=== PATIENT | female | born 1935 | race Caucasian/White ===

== ENCOUNTER 2021-05-20 11:29 | Emergency (ER) | payer MEDICARE, BC ==
[2021-05-20] MEDS ORDERED: Meclizine 12.5 MG Tab PO ONE (12:02)
[2021-05-20] MEDS ORDERED: Dexamethasone 4 MG/ML SDV IVPUSH ONE (12:03)
[2021-05-20] MEDS: Sodium Chloride 0.9% 10 ML Syringe FLUSH PRN ×3 (12:17→12:23)
[2021-05-20 12:37] LABS: ANION GAP 15.9 mEq/L (7-13); CHLORIDE,CL 100 mmol/L (98-107); SODIUM,NA 139 mmol/L (136-145)
--- NOTE | 2021-05-20 12:59 | CT ---
PROCEDURE INFORMATION: Exam: CT Head Without Contrast Exam date and time: 05/20/2021 12:28 PM Age: 85 years old Clinical indication: Dizziness; Additional info: Acute dizziness TECHNIQUE: Imaging protocol: Computed tomography of the head without contrast. Radiation optimization: All CT scans at this facility use at least one of these dose optimization techniques: automated exposure control; mA and/or kV adjustment per patient size (includes targeted exams where dose is matched to clinical indication); or iterative reconstruction. COMPARISON: CT Head wo Cont 03/29/2015 12:13 PM FINDINGS: Brain: Prominent sulci. Patchy hypodensity of the cerebral white matter which are nonspecific but likely secondary to microangiopathic changes. Cerebral ventricles: The ventricles are prominent secondary to diffuse volume loss/atrophy. Paranasal sinuses: Visualized sinuses are unremarkable. No fluid levels. Mastoid air cells: Visualized mastoid air cells are well aerated. Bones/joints: Unremarkable. No acute fracture. Soft tissues: Unremarkable. IMPRESSION: Chronic age related changes but no evidence of acute intracranial pathology.
--- NOTE | 2021-05-20 13:17 | EDM.PDOC ---
Scribed by Peri Honeycutt 05/20/21 1207 for Almas Godwin MD ED HPI GENERAL MEDICAL PROBLEM - General Chief Complaint: General Stated Complaint: DIZZY HIGH BLOOD PRESSURE [id number] Time Seen by Provider: 05/20/21 11:47 Source of Information: Reports: Patient, RN, RN Notes Reviewed History Limitations: Reports: No Limitations - History of Present Illness INITIAL COMMENTS - FREE TEXT/NARRATIVE: Patient presents to ED by POV for dizziness. Pt reports sudden onset of "room spin" dizziness on (05/17/21). The dizzy episode have come and gone several times since the onset. Pt becomes very nauseated with the dizziness, but has not vomited. Pt states she had vertigo in April last year with similar symptoms. The dizziness is worse with head movement and laying supine. Patient takes blood pressure medication at night and states she took her lisinopril and HCTZ last night. Denies headache. Admits to mild sinus congestion and drainage x1 week. Onset: Sudden Duration: Intermittent, Recurring Location: Reports: Generalized Quality: Reports: Other (Denies pain) Severity: Severe Improves with: Reports: Immobilization, Rest Worsens with: Reports: Movement Associated Symptoms: Reports: No Other Symptoms - Related Data Allergies Allergy/AdvReac Type Severity Reaction Status Date / Time meperidine [From Demerol] Allergy Agitation Verified 05/20/21 11:50 Home Meds: Home Meds Levothyroxine 75 mcg PO ACBREAKFAST 05/20/21 [History] hydroCHLOROthiazide [Hydrochlorothiazide] 12.5 mg PO DAILY 05/20/21 [History] lisinopriL [Lisinopril] 20 mg PO DAILY 05/20/21 [History] Past Medical History HEENT History: Reports: Macular Degeneration, Other (See Below) (Vertigo) Cardiovascular History: Reports: Hypertension Endocrine/Metabolic History: Reports: Hypothyroidism Social & Family History - Family History Family Medical History: No Pertinent Family History - Living Situation & Occupation Living situation: Reports: Occupation: Retired ED ROS GENERAL - Review of Systems Review Of Systems: Comprehensive ROS is negative, except as noted in HPI. ED EXAM, DIZZINESS - Physical Exam Exam: See Below Exam Limited By: No Limitations General Appearance: Alert, WD/WN, No Apparent Distress Eye Exam: Bilateral Eye: EOMI, Nystagmus (Lateral gaze), PERRL Nystagmus: reproducible Ears: Normal External Exam, Normal Canal, Hearing Grossly Normal, Normal TMs Nose: Normal Inspection, Normal Mucosa, No Blood Throat/Mouth: Normal Inspection, Normal Lips, Normal Teeth, Normal Gums, Normal Oropharynx, Normal Voice, No Airway Compromise Head Exam: Atraumatic, Normocephalic Neck: Normal Inspection, Supple, Non-Tender, Full Range of Motion. No: Carotid Bruit, Lymphadenopathy (L), Lymphadenopathy (R) Respiratory/Chest: No Respiratory Distress, Lungs Clear, Normal Breath Sounds, No Accessory Muscle Use, Chest Non-Tender Cardiovascular: Regular Rate, Rhythm, No Edema, Extra Beats Neurological: Alert, Normal Mood/Affect, Normal Dorsiflexion, CN II-XII Intact (other than nystagmus as documented above), Normal Plantar Flexion, No M otor/Sensory Deficits, Oriented x 3 Back Exam: Normal Inspection Extremities: Normal Inspection Psychiatric: Normal Affect, Normal Mood Skin Exam: Warm, Dry, Intact, Normal Color, No Rash Course - Vital Signs Last Recorded V/S: Last Vital Signs Temp 97.9 F 05/20/21 11:45 Pulse 92 05/20/21 11:45 Resp 18 05/20/21 11:45 BP 188/107 H 05/20/21 11:45 Pulse Ox 98 05/20/21 11:45 - Orders/Labs/Meds Orders: Active Orders 24 hr Category Date Time Status Peripheral IV Care [RC] . DIRECTED Care 05/20/21 12:02 Active CULTURE URINE [RM] Stat Lab 05/20/21 12:38 Received Sodium Chloride 0.9% [Saline Flush] Med 05/20/21 12:02 Active 10 ml FLUSH ASDIRECTED PRN Peripheral IV Insertion Adult [OM.PC] Stat Oth 05/20/21 12:02 Ordered Medication Orders Sodium Chloride (Sodium Chloride 0.9% 10 Ml Syringe) 10 ml FLUSH ASDIRECTED PRN PRN Reason: Keep Vein Open Last Admin: 05/20/21 12:23 Dose: 10 ml Documented by: Admin: 05/20/21 12:21 Dose: 10 ml Documented by: Admin: 05/20/21 12:17 Dose: 10 ml Documented by: MAL Labs: Laboratory Tests 05/20/21 05/20/21 05/20/21 Range/Units 12:09 12:09 12:38 WBC 9.8 (5.0-10.0) 10^3/uL RBC 4.67 (4.2-5.4) 10^6/uL Hgb 14.5 (12.0-16.0) g/dL Hct 43.7 (37.0-47.0) % MCV 93.6 (80-100) fL MCH 31.0 (27.0-34.0) pg MCHC 33.2 (33.0-35.0) g/dL Plt Count 172 (150-450) 10^3/uL Neut % (Auto) 72.8 (42.2-75.2) % Lymph % (Auto) 17.0 L (20.5-50.1) % Garvin % (Auto) 9.7 H (2-8) % Eos % (Auto) 0.2 L (1.0-3.0) % Baso % (Auto) 0.3 (0.0-1.0) % Sodium 139 (136-145) mmol/L Potassium 3.9 (3.5-5.1) mmol/L Chloride 100 (98-107) mmol/L Carbon Dioxide 27 (21-32) mmol/L Anion Gap 15.9 H (7-13) mEq/L BUN 12 (7-18) mg/dL Creatinine 0.69 (0.55-1.02) mg/dL Est Cr Clr Drug Dosing 48.86 mL/min Estimated GFR (MDRD) > 60 BUN/Creatinine Ratio 17.4 (No establ ref range) Glucose 100 H (70-99) mg/dL Calcium 9.5 (8.5-10.1) mg/dL Magnesium 2.0 (1.8-2.4) mg/dL Total Bilirubin 0.8 (0.2-1.0) mg/dL AST 16 (15-37) U/L ALT 20 (14-59) U/L Alkaline Phosphatase 69 (46-116) U/L C-Reactive Protein 4.8 H (0.0-0.9) mg/dL Total Protein 7.8 (6.4-8.2) g/dL Albumin 4.2 (3.4-5.0) g/dL Globulin 3.6 Albumin/Globulin Ratio 1.2 Urine Color Yellow (YELLOW) Urine Appearance Clear (CLEAR) Urine pH 7.0 (5.0-9.0) Ur Specific Helper 1.020 (1.005-1.030) Urine Protein Negative (NEGATIVE) Urine Glucose (UA) Negative (NEGATIVE) Urine Ketones Negative (NEGATIVE) Urine Occult Blood Trace-intact H (NEGATIVE) Urine Nitrite Negative (NEGATIVE) Urine Bilirubin Negative (NEGATIVE) Urine Urobilinogen 0.2 (0.2-1.0) mg/dL Ur Leukocyte Esterase Trace H (NEGATIVE) Urine RBC 0-5 /HPF Urine WBC 0-5 (0-5/HPF) /HPF Ur Epithelial Cells Rare (NOT SEEN) /HPF Urine Bacteria Rare (0-FEW/HPF) /HPF Meds: Medications Generic Name Dose Route Start Last Admin Trade Name Freq PRN Reason Stop Dose Admin Sodium Chloride 10 ml 05/20/21 12:02 05/20/21 12:23 Sodium Chloride 0.9% 10 Ml Syringe FLUSH 10 ml ASDIRECTED PRN Administration Keep Vein Open Discontinued Medications Generic Name Dose Route Start Last Admin Trade Name Freq PRN Reason Stop Dose Admin Dexamethasone 12 mg 05/20/21 12:03 05/20/21 12:16 Dexamethasone 4 Mg/Ml Sdv IVPUSH 05/20/21 12:04 12 mg ONETIME ONE Administration Diazepam 2.5 mg 05/20/21 12:03 05/20/21 12:17 Diazepam 10 Mg/2 Ml Syringe IVPUSH 05/20/21 12:04 2.5 mg ONETIME ONE Administration Meclizine HCl 25 mg 05/20/21 12:02 05/20/21 12:17 Meclizine 12.5 Mg Tab PO 05/20/21 12:03 25 mg ONETIME ONE Administration - Radiology Interpretation Free Text/Narrative:: CT Head: no acute findings per Rad. report. Departure - Departure Time of Disposition: 13:15 Disposition: Home, Self-Care 01 Condition: Good Clinical Impression: Vertigo, Systolic hypertension - Discharge Information *PRESCRIPTION DRUG MONITORING PROGRAM REVIEWED*: Not Applicable *COPY OF PRESCRIPTION DRUG MONITORING REPORT IN PATIENT HEIDY: Not Applicable Instructions: Vertigo Forms: ED Department Discharge Additional Instructions: Rx: Meclizine 25mg Take your blood pressure medication as prescribed. Follow up in clinic this week for recheck of vertigo and blood pressure. Sepsis Event Note (ED) - Evaluation Sepsis Screening Result: No Definite Risk - Focused Exam Vital Signs: Vital Signs Temp Pulse Resp BP Pulse Ox 05/20/21 11:45 97.9 F 92 18 188/107 H 98 - My Orders Last 24 Hours: My Active Orders 05/20/21 12:02 Peripheral IV Care [RC] . DIRECTED Sodium Chloride 0.9% [Saline Flush] 10 ml FLUSH ASDIRECTED PRN Peripheral IV Insertion Adult [OM.PC] Stat 05/20/21 12:38 CULTURE URINE [RM] Stat - Assessment/Plan Last 24 Hours: My Active Orders 05/20/21 12:02 Peripheral IV Care [RC] . DIRECTED Sodium Chloride 0.9% [Saline Flush] 10 ml FLUSH ASDIRECTED PRN Peripheral IV Insertion Adult [OM.PC] Stat 05/20/21 12:38 CULTURE URINE [RM] Stat I have read and agree with the documentation that has been completed regarding this visit. By signing this record, I attest that the documentation was completed in my physical presence and is an accurate record of the encounter.
== END 2021-05-20 13:43 | disposition home or self-care (01) ==
LOC: DL.ED 11:29
DX: I10 Essential (primary) hypertension (principal); R42 Dizziness and giddiness; E03.9 Hypothyroidism, unspecified; Z88.5 Allergy status to narcotic agent; Z79.899 Other long term (current) drug therapy
CPT/HCPCS: 36415; 70450; 80053; 81001; 83735; 85025; 86140; 87086; 96374; 96375; 99284; A9270; J1100; J3360